=== PATIENT | male | born 1965 | race Caucasian/White ===

== ENCOUNTER 2019-03-16 12:55 | Inpatient (IN) | payer MEDICAID ==
[~2019-03-16] VITALS: Ht 180.3 cm; Wt 129.5 kg
[2019-03-16] MEDS ORDERED: NEURONTIN 300300 MG PO (13:03)
[2019-03-16] MEDS ORDERED: PERCOCET 10-321 EAC1 PO (13:03)
[2019-03-16] MEDS ORDERED: ROPINIROLE HCL2 MG PO (13:04)
[2019-03-16] MEDS ORDERED: BAYER CHEWABLE81 MG PO (13:04)
[2019-03-16] MEDS ORDERED: METHOCARBAMOL750 MG PO (13:04)
[2019-03-16 13:38] LABS: BASOPHILS 0.3 % (0-2); EOSINOPHILS 1.8 % (0-7); HEMATOCRIT 50.1 % (42.0-54.0); HEMOGLOBIN 16.7 g/dL (13.5-17.5); IMMATURE GRANULOCYTES 0.5 % (0-5); MCH 31.4 pg (26.0-34.0); MCHC 33.3 g/dL (31.0-37.0); MCV 94.2 fL (80.0-100.0); MEAN PLATELET VOLUME 11.8 fL (7.4-10.4); MONOCYTES 8.6 % (2-11); NEUTROPHILS 71.8 % (40-80); PLATELET COUNT 237 10x3/uL (130-400); RBC 5.32 10x6/uL (4.20-6.10); RDW 13.9 % (11.5-14.5); WBC 14.8 10x3/uL (4.8-10.8)
[2019-03-16 13:44] LABS: CALC OSMOLALITY 272 mosm/kg (275-300); CALCIUM 8.8 mg/dL (8.5-10.1); CARBON DIOXIDE 24.9 mmol/L (21.0-32.0); CHLORIDE - SERUM 99 mmol/L (98-107); CREATININE - SERUM 1.3 mg/dL (0.6-1.3); GLUCOSE 184 mg/dL (74-106); POTASSIUM - SERUM 4.1 mmol/L (3.5-5.1); SODIUM 133 mmol/L (136-145); UREA NITROGEN 19 mg/dL (7-18); eGFR NON AFRICAN AMERICAN 61 mL/min (90-120)
[2019-03-16 13:52] LABS: ALBUMIN 3.8 g/dL (3.4-5.0); ALKALINE PHOSPHATASE 84 U/L (46-116); ALT (SGPT) 19 U/L (10-68); AMYLASE - SERUM 93 U/L (25-115); BILIRUBIN - TOTAL 0.49 mg/dL (0.2-1.3); LIPASE 183 U/L (73-393); PROTEIN - SERUM 8.4 g/dL (6.4-8.2); TROPONIN-I < 0.017 ng/mL (0.000-0.060)
[2019-03-16 17:30] LABS: PROTIME 13.2 SECONDS (11.6-15.0)
[2019-03-16 17:31] LABS: APTT 33.3 SECONDS (22.8-39.4)
--- NOTE | 2019-03-16 17:34 | NUR ---
URINE SAMPLE SENT TO LAB AT THIS TIME.
[2019-03-16 17:49] LABS: CKMB 1.2 U/L (0.0-3.6); CREATINE KINASE 73 UL (21-232); MAGNESIUM - SERUM 1.9 mg/dL (1.8-2.4)
[2019-03-16 17:52] LABS: TROPONIN-I < 0.017 ng/mL (0.000-0.060)
[2019-03-16 18:10] LABS: APPEARANCE CLEAR (CLEAR); BILIRUBIN NEGATIVE (NEGATIVE); COLOR YELLOW (YELLOW); GLUCOSE NEGATIVE (NEGATIVE); KETONE NEGATIVE (NEGATIVE); NITRITE NEGATIVE (NEGATIVE); PROTEIN TRACE mg/dL (NEGATIVE); UROBILINOGEN NORMAL (NORMAL)
--- NOTE | 2019-03-16 18:45 | NUR ---
DR CAPONE NOTIFIED AND REVIEWED PATIENT'S BEHAVIOR AND ASSESSMENT RESULTS. PT IS A LOW RISK PER DR. CAPONE. RESOURCES GIVEN AND REVIEWED WITH PATIENT. HE VERBALIZES UNDERSTANDING.
[2019-03-16 18:51] VITALS: BP 148/67
[2019-03-16] MEDS ORDERED: PROZAC40 MG PO (20:56)
[2019-03-16 22:49] VITALS: BP 124/51; Ht 180.3 cm; Wt 129.5 kg
[2019-03-17] VITALS: BP 124/51
[2019-03-17 04:00] VITALS: BP 133/63
[2019-03-17 05:08] LABS: BASOPHILS 0.3 % (0-2); EOSINOPHILS 3.2 % (0-7); HEMATOCRIT 48.4 % (42.0-54.0); HEMOGLOBIN 15.8 g/dL (13.5-17.5); IMMATURE GRANULOCYTES 0.4 % (0-5); LYMPHOCYTES 36.2 % (15-50); MCH 30.6 pg (26.0-34.0); MCHC 32.6 g/dL (31.0-37.0); MCV 93.8 fL (80.0-100.0); MEAN PLATELET VOLUME 12.4 fL (7.4-10.4); MONOCYTES 12.1 % (2-11); NEUTROPHILS 47.8 % (40-80); PLATELET COUNT 235 10x3/uL (130-400); RBC 5.16 10x6/uL (4.20-6.10); RDW 13.9 % (11.5-14.5); WBC 14.2 10x3/uL (4.8-10.8)
[2019-03-17 05:25] LABS: ALBUMIN 3.4 g/dL (3.4-5.0); ALKALINE PHOSPHATASE 78 U/L (46-116); ALT (SGPT) 16 U/L (10-68); BILIRUBIN - TOTAL 0.36 mg/dL (0.2-1.3); CALC OSMOLALITY 278 mosm/kg (275-300); CALCIUM 8.7 mg/dL (8.5-10.1); CHLORIDE - SERUM 103 mmol/L (98-107); POTASSIUM - SERUM 4.3 mmol/L (3.5-5.1); PROTEIN - SERUM 7.7 g/dL (6.4-8.2); SODIUM 138 mmol/L (136-145); UREA NITROGEN 20 mg/dL (7-18); eGFR NON AFRICAN AMERICAN 83 mL/min (90-120)
[2019-03-17 05:28] LABS: GLUCOSE 103 mg/dL (74-106)
[2019-03-17 07:58] VITALS: BP 126/66
--- NOTE | 2019-03-17 11:00 | NUR ---
PATIENT LAYING IN BED ON BACK. NO NEEDS AT THIS TIME. CL IN REACH. WCTM
[2019-03-17 11:37] VITALS: BP 107/53
[2019-03-17 15:42] VITALS: BP 127/56
--- NOTE | 2019-03-17 19:00 | NUR ---
PATIENT SITTING ON BED WITH FAMILY AT THE BEDSIDE. NO ACUTE S/S OF DISTRESS. NO COMPLAINTS AT THIS TIME. PATIENT HAS IV IN THE L HAND INFUSING NORMAL SALINE @ 125 ML/HR. IV IS PATENT WITHOUT REDNESS, SWELLING, OR TENDERNESS. PATIENT WEARS O2 @ 3L NASAL CANNULA. PATIENT REQUESTED TO LEAVE TO THE FLOOR TO SMOKE, AND DID. CALL LIGHT IN PLACE. WILL CONTINUE TO MONITOR.
--- NOTE | 2019-03-17 19:56 | NUR ---
PATIENT IS BACK FROM SMOKING. PATIENT HOOKED BACK UP TO IV. CALL LIGHT IN PLACE. WILL CONTINUE TO MONITOR.
[2019-03-17 20:27] VITALS: BP 143/62
--- NOTE | 2019-03-17 23:55 | NUR ---
PT ALERT AND ORIENTED x4. PT JUST GETTING BACK TO THE FLOOR FROM OUTSIDE SMOKING. NO COMPLAINTS OF PAIN AT THIS TIME. LEFT HAND IV INFLILTRATED. IV RESITED TO RIGHT FOREARM. WILL CONTINUE TO MONITOR.
[2019-03-18 00:56] VITALS: BP 152/63
[2019-03-18 05:19] VITALS: BP 127/72
[2019-03-18 06:06] LABS: BASOPHILS 0.3 % (0-2); EOSINOPHILS 5.6 % (0-7); HEMATOCRIT 45.4 % (42.0-54.0); HEMOGLOBIN 14.5 g/dL (13.5-17.5); IMMATURE GRANULOCYTES 0.5 % (0-5); LYMPHOCYTES 41.7 % (15-50); MCH 30.2 pg (26.0-34.0); MCHC 31.9 g/dL (31.0-37.0); MCV 94.6 fL (80.0-100.0); MONOCYTES 12.6 % (2-11); NEUTROPHILS 39.3 % (40-80); PLATELET COUNT 206 10x3/uL (130-400); RDW 13.9 % (11.5-14.5)
[2019-03-18 06:44] LABS: CALCIUM 8.2 mg/dL (8.5-10.1); CARBON DIOXIDE 26.3 mmol/L (21.0-32.0); CHLORIDE - SERUM 105 mmol/L (98-107); GLUCOSE 144 mg/dL (74-106); POTASSIUM - SERUM 3.9 mmol/L (3.5-5.1); SODIUM 139 mmol/L (136-145)
[2019-03-18 06:46] LABS: CALC OSMOLALITY 279 mosm/kg (275-300); CREATININE - SERUM 0.7 mg/dL (0.6-1.3); UREA NITROGEN 11 mg/dL (7-18); eGFR NON AFRICAN AMERICAN > 90 mL/min (90-120)
--- NOTE | 2019-03-18 10:14 | NUR ---
PT WANTING DISCONNECTED TO AMBULATE AROUND HALLS WITH FAMILY. W/C PROVIDED. NO CURRENT NEEDS. WILL CTM.
[2019-03-18 10:38] VITALS: BP 137/80
--- NOTE | 2019-03-18 14:48 | NUR ---
PT SITTING UP IN BED RESTING QUIETLY C/O GENERALIZED PAIN REQUESTING PRN ROBAXIN. PROVIDED PT WITH THAT AND A COKE REQUESTED. NO CURRENT NEEDS. WILL CTM.
[2019-03-18 15:26] VITALS: BP 139/66
[2019-03-18 18:25] VITALS: BP 143/57
[2019-03-18 23:46] VITALS: BP 137/55
[2019-03-19 04:00] VITALS: BP 128/85
--- NOTE | 2019-03-19 04:06 | NUR ---
I have reviewed this patient and I concur with the Shift Assessment completed by the Licensed Practical Nurse today this shift.
[2019-03-19 06:24] LABS: CALC OSMOLALITY 280 mosm/kg (275-300); CALCIUM 8.6 mg/dL (8.5-10.1); CARBON DIOXIDE 28.7 mmol/L (21.0-32.0); CHLORIDE - SERUM 105 mmol/L (98-107); CREATININE - SERUM 0.7 mg/dL (0.6-1.3); GLUCOSE 129 mg/dL (74-106); POTASSIUM - SERUM 4.4 mmol/L (3.5-5.1); SODIUM 140 mmol/L (136-145); UREA NITROGEN 12 mg/dL (7-18); eGFR NON AFRICAN AMERICAN > 90 mL/min (90-120)
[2019-03-19 07:22] LABS: BASOPHILS 0.4 % (0-2); EOSINOPHILS 6.2 % (0-7); HEMATOCRIT 43.7 % (42.0-54.0); IMMATURE GRANULOCYTES 0.3 % (0-5); LYMPHOCYTES 43.5 % (15-50); MCH 30.6 pg (26.0-34.0); MCV 95.4 fL (80.0-100.0); MEAN PLATELET VOLUME 12.3 fL (7.4-10.4); MONOCYTES 12.1 % (2-11); NEUTROPHILS 37.5 % (40-80); PLATELET COUNT 196 10x3/uL (130-400); RBC 4.58 10x6/uL (4.20-6.10); RDW 13.7 % (11.5-14.5); WBC 10.4 10x3/uL (4.8-10.8)
--- NOTE | 2019-03-19 08:03 | NUR ---
PATIENT IS SITTING UP IN BED. HE STATES THAT HE LIKES COKES, AND HIS PAIN MED IS DUE AT 08:30. DENIES ANY NEEDS AT THIS TIME.
[2019-03-19 09:48] VITALS: BP 176/69
--- NOTE | 2019-03-19 13:39 | MORECARE ---
CASE MANAGEMENT DISCHARGE SUMMARY PATIENT: ROSEANNE WATSON JR UNIT: [id number] ADM DATE: 03/16/19 AGE: 53 : 63 SEX: M ROOM/BED: D.2113 AUTHOR: KEYLA POP PHYSICIAN: REFERRING PHYSICIAN: NGHIA MENDOZA MD DATE OF SERVICE: 03/19/19 Discharge Plan Patient Name: ROSEANNE WATSON [facility] [facility] 1965 Planned Disposition: Hospice Home Anticipated Discharge Date: 03/20/19 Discharge Date: Expected LOS: 4 Initial Reviewer: [email or web address] Initial Review Date: 03/19/2019 Generated: 03/19/19 2:38 pm Patient Name: ROSEANNE WATSON Page [id number] at 1339 All edits/amendments must be made on the electronic document DICTATION DATE: 03/19/198 GROUP INSURANCE SPECIAL AGENT: SEA 03/19/19 1338 RPT#: [id number] DC DATE: STATUS: ADM IN [facility] [address] [place] [address] END OF REPORT
[2019-03-19 13:44] VITALS: BP 158/65
--- NOTE | 2019-03-19 13:48 | MORECARE ---
CASE MANAGEMENT DISCHARGE SUMMARY PATIENT: ROSEANNE WATSON JR UNIT: [id number] ADM DATE: 03/16/19 AGE: 53 : 63 SEX: M ROOM/BED: D.2113 AUTHOR: KIESHA,DOC PHYSICIAN: REFERRING PHYSICIAN: NGHIA EMNDOZA MD DATE OF SERVICE: 03/19/19 Discharge Plan Patient Name: ROSEANNE WATSON Facility: [facility]:[place] : 1965 Planned Disposition: Home Anticipated Discharge Date: 03/20/19 Discharge Date: Expected LOS: 4 Initial Reviewer: [email or web address] Initial Review Date: 03/19/2019 Generated: 03/19/19 2:47 pm Comments DCP- Discharge Planning Updated by [id number]: Joey Cortez on 03/19/19 12:[address] Patient Name: ROSEANNE WATSON Admission Status: ER Accout number: [id number] Admission Date: 03-16-2019 : 1965 Admission Diagnosis: Attending: CHRISTA Current LOS: 3 Anticipated DC Date: 03-20-2019 Planned Disposition: Home Primary Insurance: [place] PRIVATE OPTIONS [place] Discharge Planning Comments: CM MET WITH PT IN ROOM TO DISCUSS DISCHARGE PLANNING AND NEEDS. PT REPORTS LIVING AT HOME INDEPENDENTLY WITH A FRIEND. PT HAS CANE, CPAP, HOME OXYGEN, NEBUILZER AND WHEELCHAIR. PT OWNS HIS OXGEN AND NEBULIZER FROM A COMPANY UP IN [place], PT'S CURRENT MEDICAL EQUIPMENT PROVDER IS [employer]. PT HAS NO OUTSIDE SERVICES ASSISTING IN THE HOME. CM DISCUSSED AVAILABILITY OF HOME HEALTH, REHAB SERVICES AND MEDICAL EQUIPMENT. PT DENIES DISCHARGE NEEDS, REPORTS HIS DAUGHTER WILL PICK HER UP FOR DISCHARGE HOME. Speech Correction Assistant: Joey Cortez DCPIA - Discharge Planning Initial Assessment Updated by [id number]: Joey Cortez on 03/19/19 1:40 pm * Is the patient Alert and Oriented? Yes * How many steps to enter\exit or inside your home? * PCP DR. MENDOZA * Pharmacy [facility] * Preadmission Environment Home with Family * ADLs Independent * Equipment Cane CPAP Nebulizer Oxygen Wheelchair * Other Equipment HOME OXYGEN ONLY (OWNS FROM [employer]) [employer] - MEDICAL EQUIPMENT PROVIDER * List name and contact numbers for known caregivers / representatives who currently or will assist patient after discharge: AGUSTINA EVANGELISTA, BROTHER, * Verbal permission to speak to the caregivers and representatives has been obtained from the patient. N/A * Community resources currently utilized None * Please name any agencies selected above. NONE * Additional services required to return to the preadmission environment? No * Can the patient safely return to the preadmission environment? Yes * Has this patient been hospitalized within the prior 30 days at any hospital? No Last DP export: 03/19/19 12:39 p Patient Name: ROSEANNE WATSON Page [id number] at 1348 All edits/amendments must be made on the electronic document DICTATION DATE: 03/19/191346 PANCAKE PROFESSIONAL: SEA 03/19/191346 RPT#: [id number] DC DATE: STATUS: ADM IN [facility] [address] [place] [address] END OF REPORT
[2019-03-19 17:09] VITALS: BP 142/55
[2019-03-19 20:00] VITALS: BP 146/58
[2019-03-20] VITALS: BP 138/60
[2019-03-20 04:00] VITALS: BP 131/50
--- NOTE | 2019-03-20 04:30 | NUR ---
I have reviewed this patient and I concur with the Shift Assessment completed by the Licensed Practical Nurse today this shift.
[2019-03-20] MEDS ORDERED: OMNICEF300 MG PO (07:21)
--- NOTE | 2019-03-20 10:26 | NUR ---
PATIENT IS AWAKE AND ALERT. IV REMOVED FROM R FOREARM CATHETER INTACT. HE IS REFUSING TO HAVE ANOTHER IV PLACED BECAUSE HE SHOULD BE GETTING DISCHARGED TODAY. IF HE DOES NOT GET DISCHARGED , HE WILL AGREE TO IV PLACEMENT THIS AFTERNOON.
--- NOTE | 2019-03-20 13:08 | NUR ---
I CALLED AND LEFT BREN SMILEY APN A VOICE MAIL MESSAGE TO SEE HOW MANY OMNICEF HE NEEDED CALLED IN. I TOLD HIM TO CALL ME OR HE CAN CALL [facility] [phone] AND LET THEM KNOW. AWAITING CALL BACK.
--- NOTE | 2019-03-20 13:33 | NUR ---
PER CORBY, FLOORMAN. SHE STATES THAT BREN CALLED HER AND HE CALLED THE OMNICEF TO [facility].
--- NOTE | 2019-03-20 14:38 | NUR ---
PATIENT IS COMING BACK ON THE FLOOR FROM ONE OF HIS BREAKS OUTSIDE WITH SIGNIFICANT OTHER. HE IS BEING DISCHARGED.
--- NOTE | 2019-03-20 14:54 | NUR ---
DISCHARGE TEACHING COMPLETE AND PAPERS SIGNED. PATIENT IS GOING DOWNSTAIRS BY WHEEL CHAIR AND HE IS TAKING ALL HIS BELONGINGS OUT OF THE ROOM WITH HIM.
[2019-03-20 14:56] VITALS: BP 158/76
--- NOTE | 2019-03-20 17:07 | MORECARE ---
CASE MANAGEMENT DISCHARGE SUMMARY PATIENT: ROSEANNE WATSON JR UNIT: [id number] ADM DATE: 03/16/19 AGE: 53 : 63 SEX: M ROOM/BED: D.2113 AUTHOR: KIESHA,DOC PHYSICIAN: REFERRING PHYSICIAN: NGHIA MENDOZA MD DATE OF SERVICE: 03/20/19 Discharge Plan Patient Name: ROSEANNE WATSON Facility: [facility]:[place] : 1965 Planned Disposition: Home Anticipated Discharge Date: 03/20/19 Discharge Date: 03/20/2019 Expected LOS: 4 Initial Reviewer: [email or web address] Initial Review Date: 03/19/2019 Generated: 03/20/19 6:06 pm DCP- Discharge Planning Updated by [email or web address]: Joey Cortez on 03/19/19 12:[address] Patient Name: ROSEANNE WATSON Admission Status: ER Accout number: [id number] Admission Date: 03-16-2019 : 1965 Admission Diagnosis: Attending: CHRISTA Current LOS: 3 Anticipated DC Date: 03-20-2019 Planned Disposition: Home Primary Insurance: [place] PRIVATE OPT[employer] [place] Discharge Planning Comments: CM MET WITH PT IN ROOM TO DISCUSS DISCHARGE PLANNING AND NEEDS. PT REPORTS LIVING AT HOME INDEPENDENTLY WITH A FRIEND. PT HAS CANE, CPAP, HOME OXYGEN, NEBUILZER AND WHEELCHAIR. PT OWNS HIS OXGEN AND NEBULIZER FROM A COMPANY UP IN [place], PT'S CURRENT MEDICAL EQUIPMENT PROVDER IS [employer]. PT HAS NO OUTSIDE SERVICES ASSISTING IN THE HOME. CM DISCUSSED AVAILABILITY OF HOME HEALTH, REHAB SERVICES AND MEDICAL EQUIPMENT. PT DENIES DISCHARGE NEEDS, REPORTS HIS DAUGHTER WILL PICK HER UP FOR DISCHARGE HOME. Dust Collector: Joey Cortez DCPIA - Discharge Planning Initial Assessment Updated by [email or web address]: Joey Cortez on 03/19/19 1:40 pm * Is the patient Alert and Oriented? Yes * How many steps to enter\exit or inside your home? * PCP DR. MENDOZA * Pharmacy [facility] * Preadmission Environment Home with Family * ADLs Independent * Equipment Cane CPAP Nebulizer Oxygen Wheelchair * Other Equipment HOME OXYGEN ONLY (OWNS FROM [employer]) [employer] - MEDICAL EQUIPMENT PROVIDER * List name and contact numbers for known caregivers / representatives who currently or will assist patient after discharge: AGUSTINA EVANGELISTA, BROTHER, * Verbal permission to speak to the caregivers and representatives has been obtained from the patient. N/A * Community resources currently utilized None * Please name any agencies selected above. NONE * Additional services required to return to the preadmission environment? No * Can the patient safely return to the preadmission environment? Yes * Has this patient been hospitalized within the prior 30 days at any hospital? No Last DP export: 03/19/19 12:48 p Patient Name: ROSEANNE WATSON Page 82135 at 1707 All edits/amendments must be made on the electronic document DICTATION DATE: 03/20/191705 MORTAR MIXER OPERATOR: SEA 03/20/191705 RPT#: [id number] DC DATE:03/20/19 STATUS: DIS IN [facility] [address] [place] [address] END OF REPORT
== END 2019-03-20 15:36 | disposition home or self-care (01) | DRG 190 ==
LOC: D.ER 12:55 → D.M2 18:43 → D.SDCHOLD 03-19 11:57 → D.M2 03-20 15:36
PROVIDERS: Family Medicine; Legal Medicine; ADMIT Emergency Medicine; ATTEND Emergency Medicine
DX: J44.0 Chronic obstructive pulmonary disease with (acute) lower respiratory infection (principal); J18.9 Pneumonia, unspecified organism; I95.9 Hypotension, unspecified; I10 Essential (primary) hypertension; F32.9 Major depressive disorder, single episode, unspecified

== ENCOUNTER → 2019-04-24 13:12 | Outpatient (CLI) | payer OTHER ==
[2019-03-16 22:49] VITALS: BMI 40.2
[~2019-04-24 13:12] MED LIST: BAYER CHEWABLE81 MG PO; METHOCARBAMOL750 MG PO; NEURONTIN 300300 MG PO; OMNICEF300 MG PO; PERCOCET 10-321 EAC1 PO; PROZAC40 MG PO; ROPINIROLE HCL2 MG PO
== END | disposition home or self-care (01) ==
LOC: D.RAD 13:12 → D.RT 14:00
PROVIDERS: ATTEND Pediatrics
DX: Z02.71 Encounter for disability determination (principal)

== ENCOUNTER 2019-10-22 14:32 | Inpatient (IN) | payer MEDICAID ==
[~2019-10-22] VITALS: Ht 180.3 cm; Wt 144.6 kg
--- NOTE | 2019-10-22 02:10 | NUR ---
PUI PRECAUTIONS INITIATED.
--- NOTE | 2019-10-22 15:20 | NUR ---
FLU, STREP, RSV, AND COVID-19 SWABS COLLECTED AND SENT TO THE LAB. URINE SENT TO THE LAB.
[2019-10-22 15:49] LABS: BILIRUBIN NEGATIVE (NEGATIVE); GLUCOSE NEGATIVE (NEGATIVE); KETONE NEGATIVE (NEGATIVE); NITRITE NEGATIVE (NEGATIVE); UROBILINOGEN NORMAL (NORMAL)
[2019-10-22 16:07] LABS: BASOPHILS 0.3 % (0-2); EOSINOPHILS 3.1 % (0-7); HEMATOCRIT 48.1 % (42.0-54.0); HEMOGLOBIN 15.8 g/dL (13.5-17.5); IMMATURE GRANULOCYTES 0.4 % (0-5); LYMPHOCYTES 22.8 % (15-50); MCH 30.4 pg (26.0-34.0); MCHC 32.8 g/dL (31.0-37.0); MCV 92.5 fL (80.0-100.0); MEAN PLATELET VOLUME 12.1 fL (7.4-10.4); MONOCYTES 9.3 % (2-11); NEUTROPHILS 64.1 % (40-80); PLATELET COUNT 186 10x3/uL (130-400); RDW 13.8 % (11.5-14.5); WBC 14.1 10x3/uL (4.8-10.8)
[2019-10-22 16:40] LABS: CALC OSMOLALITY 271 mosm/kg (275-300); CALCIUM 8.9 mg/dL (8.5-10.1); CARBON DIOXIDE 30.6 mmol/L (21.0-32.0); CHLORIDE - SERUM 101 mmol/L (98-107); CREATININE - SERUM 0.9 mg/dL (0.6-1.3); GLUCOSE 119 mg/dL (74-106); POTASSIUM - SERUM 3.8 mmol/L (3.5-5.1); SODIUM 136 mmol/L (136-145); UREA NITROGEN 9 mg/dL (7-18); eGFR NON AFRICAN AMERICAN > 90 mL/min (90-120)
[2019-10-22 16:47] LABS: ALBUMIN 3.7 g/dL (3.4-5.0); ALKALINE PHOSPHATASE 87 U/L (30-120); ALT (SGPT) 17 U/L (10-68); BILIRUBIN - TOTAL 0.48 mg/dL (0.2-1.3); PROTEIN - SERUM 7.6 g/dL (6.4-8.2)
[2019-10-22 18:30] VITALS: BP 161/53
--- NOTE | 2019-10-22 19:15 | NUR ---
REPORT TO KIRAN BOO
--- NOTE | 2019-10-22 20:30 | NUR ---
RECEIVED PATIENT TO ROOM 2134 VIA STRETCHER. PATIENT IS AAOX4, UP AD OPAL. NO S/S OF DISTRESS OBSERVED, RR EVEN AND UNLABORED ON 2L O2 VIA NC. PIV TO LT FA, PATENT, INFUSING NS @ 75ML/HR. SANDWICH TRAY, SNACKS AND ICE WATER PROVIDED PER REQUEST. PATIENT DENIES DENIES FURTHER NEEDS AT THIS TIME. QUICK START, MED REC, ADULT HX, SRS, FPOC ALL COMPLETED. CL IN REACH, BED LOCKED AND LOWERED. WILL CTM.
[2019-10-23] VITALS: BP 132/58
[2019-10-23 04:00] VITALS: BP 144/81
[2019-10-23 05:47] LABS: BASOPHILS 0.2 % (0-2); EOSINOPHILS 1.3 % (0-7); HEMATOCRIT 45.2 % (42.0-54.0); HEMOGLOBIN 14.7 g/dL (13.5-17.5); LYMPHOCYTES 11.7 % (15-50); MCH 30.2 pg (26.0-34.0); MCHC 32.5 g/dL (31.0-37.0); MCV 92.8 fL (80.0-100.0); MEAN PLATELET VOLUME 12.9 fL (7.4-10.4); MONOCYTES 3.8 % (2-11); PLATELET COUNT 189 10x3/uL (130-400); RBC 4.87 10x6/uL (4.20-6.10); RDW 13.8 % (11.5-14.5); WBC 11.2 10x3/uL (4.8-10.8)
[2019-10-23 05:51] LABS: ANION GAP 9.5 mmol/L (8-16); CALCIUM 8.4 mg/dL (8.5-10.1); CARBON DIOXIDE 26.2 mmol/L (21.0-32.0); CREATININE - SERUM 1.1 mg/dL (0.6-1.3)
[2019-10-23 05:54] LABS: POTASSIUM - SERUM 4.7 mmol/L (3.5-5.1)
[2019-10-23 08:03] VITALS: BP 159/72
[2019-10-23 12:00] VITALS: BP 150/63
[2019-10-23 14:17] VITALS: Ht 180.3 cm; Wt 144.6 kg
--- NOTE | 2019-10-23 15:17 | NUR ---
I have reviewed this patient and I concur with the Shift Assessment completed by the Licensed Practical Nurse today this shift.
[2019-10-23 16:02] VITALS: BP 120/51
--- NOTE | 2019-10-23 19:10 | NUR ---
REPORT RECEIVED, PT CARE ASSUMED. INTRODUCED SELF AND WROTE NAME ON BOARD. PT LYING IN BED, WATCHING TV, AAOX4. REQUESTING SODA, PROVIDED. DENIES ANY OTHER NEEDS AT THIS TIME. BED IN LOWEST, SRX1, CALL LIGHT WITHIN REACH. WILL CTM.
[2019-10-24 04:00] VITALS: BP 132/64
[2019-10-24 08:13] VITALS: BP 162/71
[2019-10-24 12:00] VITALS: BP 112/55
--- NOTE | 2019-10-24 13:43 | NUR ---
THIS AM PT RESTING QUIETLY . NO APPARENT DISTRESS . WILL CONTINUE TO MONITOR.
[2019-10-24 16:00] VITALS: BP 128/78
[2019-10-24] MEDS ORDERED: NICODERM CQ1 EAC3 TOPICAL (17:31)
--- NOTE | 2019-10-24 17:37 | NUR ---
PER DR VELAZCO PT TO BE D/C'D ON ZITHROMAX AND MEDROL DOSPAK. CALLED TO [facility] [address], SPOKE WITH FCO, PHARMACIST.
[2019-10-24] MEDS ORDERED: ZITHROMAX250 MG PO (17:38)
[2019-10-24] MEDS ORDERED: MEDROL DOSE PACK4 MG PO (17:38)
== END 2019-10-24 19:12 | disposition home or self-care (01) | DRG 190 ==
LOC: D.ER 14:32 → D.M2 19:44
PROVIDERS: Family Medicine; ADMIT Legal Medicine; ATTEND Legal Medicine
DX: J44.0 Chronic obstructive pulmonary disease with (acute) lower respiratory infection (principal); J18.9 Pneumonia, unspecified organism; J45.901 Unspecified asthma with (acute) exacerbation; Z68.41 Body mass index [BMI] 40.0-44.9, adult; E87.1 Hypo-osmolality and hyponatremia; Z99.81 Dependence on supplemental oxygen; G47.33 Obstructive sleep apnea (adult) (pediatric); I10 Essential (primary) hypertension; E78.5 Hyperlipidemia, unspecified; E11.40 Type 2 diabetes mellitus with diabetic neuropathy, unspecified; E11.65 Type 2 diabetes mellitus with hyperglycemia; I25.10 Atherosclerotic heart disease of native coronary artery without angina pectoris; E66.01 Morbid (severe) obesity due to excess calories; F17.210 Nicotine dependence, cigarettes, uncomplicated; Z86.73 Personal history of transient ischemic attack (TIA), and cerebral infarction without residual deficits